=== PATIENT | female | born 1975 | race Caucasian/White ===

== ENCOUNTER → 2020-12-24 | Outpatient (CLI) | payer OTHER ==
--- NOTE | 2020-12-25 02:52 | MR ---
EXAMINATION TYPE: MR lumbar spine wo con DATE OF EXAM: 12/24/2020 COMPARISON: None HISTORY: RT side low back pain into rt lower extremity Multiplanar multiecho imaging of the lumbar spine was performed without contrast. Lumbar vertebra hav e normal alignment. Disc spaces are fairly normal. There is no compression fracture. There is slight decreased signal in the disks. Lumbar nerve roots appear normal. The neural foramina are fairly well- maintained. There is small posterior disc bulging at L2-3 without significant impingement on the spin al canal. There is developmentally adequate spinal canal. The sacroiliac joints appear intact. I see no bony destructive process. There is no evidence of lumbar paraspinal mass. IMPRESSION: Small posterior L2-3 disc herniation. No spinal stenosis. No fracture. Minor degenerative disc signal changes.
--- NOTE | 2020-12-25 03:01 | MR ---
EXAMINATION TYPE: MR hip RT wo con DATE OF EXAM: 12/24/2020 COMPARISON: None HISTORY: Right hip pain Multiplanar multiecho imaging of the pelvis and right hip was performed with no contrast. FINDINGS: Bladder distends smoothly. There is no free fluid in the pelvis. Uterus appears normal. There is no s ign of a pelvic mass. The acetabula are symmetric. There is slight increased joint fluid on the right side compared to the left. There is increased signal on the T2 images in the right rectus femoris muscle region anterior to the right femoral neck. There is no evidence of a soft tissue mass. The femoral heads have normal signal pattern there is no evidence of avascular necrosis. I see no foc al bone destruction. IMPRESSION: There is some mild edema in the right rectus femoris muscle anterior to the femoral neck that could r elate to some mild myositis. Slight increased joint fluid on the right side compared to the left coul d be some minimal synovitis. There is no evidence of avascular necrosis. No significant hip joint spa ce narrowing.
== END | disposition home or self-care (01) ==
LOC: RADMRIMAIN 06:14
PROVIDERS: ATTEND Orthopaedic Surgery Sports Medicine
DX: M51.26 Other intervertebral disc displacement, lumbar region (principal); M51.36 Other intervertebral disc degeneration, lumbar region; M60.9 Myositis, unspecified
CPT/HCPCS: 72148

== ENCOUNTER 2024-04-08 06:32 | Day surgery (SDC) | payer OTHER ==
[2024-04-02 13:37] VITALS: BMI 28.3
[2024-04-08] MEDS: LACTATED RINGERS 1,000 ML IV ONE (07:09)
[2024-04-08] MEDS ORDERED: LIDOCAINE 1% (10MG/ML) FOR IV START INTRADERMA PRN (07:11)
[2024-04-08] MEDS ORDERED: LACTATED RINGERS 1,000 ML IV SCH (07:11)
[2024-04-08] MEDS ORDERED: PROPOFOL 10 MG/ML 20 ML VIAL IV ONE (07:30)
--- NOTE | 2024-04-08 07:50 | P.PCN ---
Date of Procedure: 04/08/24 Procedure(s) Performed: Brief history: Patient is a pleasant 9-year-old pleasant white female scheduled for an elective upper endoscopy as well as colonoscopy as a part of evaluation of GERD/intermittent dysphagia to solids and screening for colon cancer Procedure performed: Esophagogastroduodenoscopy with biopsy and dilation Colonoscopy with snare polypectomy Preoperative diagnosis: GERD/intermittent dysphagia to solids Screening for colon cancer Anesthesia: MAC Procedure: After informed consent was obtained from the patient was brought into the endoscopy unit and IV sedation was administered by anesthesia under continuous monitoring. Initially upper endoscopy was done. The Olympus GF 160 video endoscope was inserted inserted into the mouth and esophagus intubated without any difficulty and was gradually advanced into the stomach and duodenum and carefully examined. The bulb and second part of the duodenum appeared normal. The scope was then withdrawn into the stomach adequately insufflated with air and upon careful examination the antrum and body, cardia and fundus appeared normal. The scope was then withdrawn into the esophagus. The GE junction was located at 40 cm to the incisors. It appeared regular with no erythema erosions or ulcerations. Rest of the esophagus appeared normal. Patient tolerated the procedure well. At this time the patient continued to remain sedation. Initial digital rectal examination was normal. Olympus CF 160 video colonoscope was then inserted into the rectum and gradually advanced to the cecum without any difficulty. Careful examination was performed as the scope was gradually being withdrawn. The prep was excellent. The cecum, ascending colon, appeared normal. The transverse colon there was a 7 mm polyp removed by cold snare polypectomy. Rest of the transverse colon, descending colon, sigmoid colon and rectum appeared normal. Retroflexion was performed in the rectum and no lesions were noted. Patient tolerated the procedure well. Impression: 1. Upper endoscopy revealed small hiatal hernia and early distal esophageal stricture s/p balloon dilation using 18 to 20 mm TTS balloon as described above 2. Colonoscopy revealed a 7 mm transverse colon polyp status post cold snare polypectomy. Rest of the colon appeared normal Recommendations: Findings of this examination were discussed with the patient as well as her family. She was advised to follow-up with the biopsy results. Recommended liquids for 2 hours. Continue with pantoprazole 40 mg daily as well as Carafate daily. If the biopsy of the colon polyps reveals adenoma, recommend repeat colonoscopy in 5 years.
[2024-04-08 07:52] VITALS: TEMP 97
[2024-04-08 08:46] VITALS: BP 106/68; PULSE 65; RESP 15
== END 2024-04-08 08:23 | disposition home or self-care (01) ==
LOC: ORWHC2ENDO 06:32
PROVIDERS: ATTEND Internal Medicine Gastroenterology
DX: Z12.11 Encounter for screening for malignant neoplasm of colon (principal); K21.00 Gastro-esophageal reflux disease with esophagitis, without bleeding; D12.3 Benign neoplasm of transverse colon; K44.9 Diaphragmatic hernia without obstruction or gangrene; K22.2 Esophageal obstruction; Z79.899 Other long term (current) drug therapy; Z88.8 Allergy status to other drugs, medicaments and biological substances
CPT/HCPCS: 81025; 88305; 45385; 43239; 43249; J2704